=== PATIENT | male | born 1995 | race Caucasian/White ===

== ENCOUNTER → 2016-07-23 | Outpatient (CLI) | payer OTHER | END | disposition home or self-care (01) | LOC: YCFC.O 08:31 | PROVIDERS: ATTEND Nurse Practitioner Family | DX: Z13.220 Encounter for screening for lipoid disorders (principal); K29.70 Gastritis, unspecified, without bleeding ==

== ENCOUNTER → 2016-08-24 | Outpatient (CLI) | payer OTHER | LOC: RESP 13:49 | PROVIDERS: ATTEND Nurse Practitioner Family | DX: R07.9 Chest pain, unspecified (principal) ==

== ENCOUNTER → 2018-05-29 | Outpatient (CLI) | payer MEDICARE, OTHER ==
--- NOTE | 2018-05-30 11:19 | US ---
EXAM DESCRIPTION: Soft Tissue,Extremity: ULTRASOUND. CLINICAL HISTORY: 22 years Male EVALUATE FOR BAKERS CYST COMPARISON: None Available. TECHNIQUE: Transcutaneous scanning: Mac-scale and Doppler modes.: Left knee. FINDINGS: Scanning of the soft tissues of the posterior left knee. No dominant solid mass or distinct cyst. No parenchymal edema or large calcifications. No overlying skin changes. Normal vascularity. IMPRESSION: No soft tissue mass or fluid posterior left knee. Electronically signed by: Sergio Ivey MD 05/30/2018 11:16 AM [facility]
== END ==
LOC: US 14:56
PROVIDERS: ATTEND Nurse Practitioner Family
DX: M25.562 Pain in left knee (principal)

== ENCOUNTER → 2018-06-10 | Outpatient (CLI) | payer MEDICARE, OTHER ==
--- NOTE | 2018-06-10 11:37 | RAD ---
EXAM DESCRIPTION: Knee,Left Complete CLINICAL HISTORY: PAIN IN LEFT KNEE COMPARISON: None. IMPRESSION: 4 standing views of the left knee show no acute fracture, focal bone destruction, or joint dislocation. Mild lateral tilting of the patella is seen and could represent patellar tracking abnormality. No advanced arthrosis. Soft tissues are unremarkable. Electronically signed by: Ismael Bansal MD 06/10/2018 11:33 AM [facility]
--- NOTE | 2018-06-10 11:43 | RAD ---
EXAM DESCRIPTION: Pelvis CLINICAL HISTORY: PAIN IN LEFT HIP COMPARISON: None. IMPRESSION: Single AP supine view of the pelvis shows no acute fracture, focal bone destruction, or joint dislocation. No joint space narrowing. No advanced arthrosis. Small left greater than right cam deformity is of the lateral femoral head to neck junction is seen. Electronically signed by: Ismael Bansal MD 06/10/2018 11:40 AM [facility]
== END ==
LOC: RAD 08:46
PROVIDERS: ATTEND Orthopaedic Surgery
DX: M25.562 Pain in left knee (principal); M25.552 Pain in left hip

== ENCOUNTER → 2018-07-31 | Outpatient (CLI) | payer MEDICARE, MEDICAID ==
--- NOTE | 2018-08-01 14:55 | US ---
EXAM DESCRIPTION: Abdomen,Complete: Ultrasound. CLINICAL HISTORY: UNSPECIFIED ABDOMINAL PAIN COMPARISON: None Available. TECHNIQUE: Transabdominal scannin-dimensional and Doppler modes. FINDINGS: Gallbladder: Normal size and echogenicity with no intraluminal stones or sludge. No wall thickness 2.7 mm. No fluid around the wall. Nontender with transducer pressure. Common bile duct: 3.2 mm normal caliber. Liver: Increased echogenicity. Long axis right lobe 15.7 cm. Normal caliber of the portal vein and normal hepatopedal flow. Ducts are not dilated. 1.8 x 3.2 x 1.7 cm focal echogenic object in the right lobe. Smooth capsule with no ascites. Pancreas: Observed segments with normal echogenicity. Pancreatic duct not seen.. Abdominal aorta: Normal caliber from the proximal segment to the distal bifurcation. IVC: visualized; normal caliber. Spleen normal echogenicity; long axis measurement is 12.5 cm. Right kidney: 9.6 cm long axis. Normal cortical thickness and echogenicity. No hydronephrosis or perinephric fluid.. Left kidney: 11.0 cm long axis. Normal cortical thickness and echogenicity. No hydronephrosis or perinephric fluid. IMPRESSION: 1. Heterogeneously fatty liver. Focal echogenic region may represent a fatty island of the liver versus a hemangioma. Normal vascularity and normal intrahepatic ducts with no ascites. 2. Normal gallbladder and normal caliber of the common bile duct. Nontender during the scan. Pancreas is unremarkable. Negative findings in the spleen. 3. Bilateral kidneys unremarkable. Normal caliber of the IVC and abdominal aorta. Electronically signed by: Sergio Ivey MD 08/01/2018 2:52 PM CDT
== END ==
LOC: US 14:00
PROVIDERS: ATTEND Internal Medicine
DX: K76.0 Fatty (change of) liver, not elsewhere classified (principal)

== ENCOUNTER → 2018-08-07 | Outpatient (CLI) | payer MEDICARE, MEDICAID | LOC: LAB.O 16:33 | PROVIDERS: ATTEND Nurse Practitioner Family | DX: R10.32 Left lower quadrant pain (principal) ==

== ENCOUNTER → 2018-08-08 | Outpatient (CLI) | payer MEDICARE, MEDICAID ==
--- NOTE | 2018-08-08 14:01 | CT ---
EXAM DESCRIPTION: Abdomen/Pelvis w/wo Contrast CLINICAL HISTORY: 22 years Male, LEFT LOWER QUADRANT PAIN COMPARISON: Ultrasound abdomen dated 07/31/2018. TECHNIQUE: Contiguous 3 mm axial images were obtained from the lung bases to the level of the proximal femora before and after the administration of intravenous and oral contrast. Sagittal and coronal reconstructions were reviewed. FINDINGS: THORAX: The imaged lower thorax demonstrates no gross abnormality. LIVER: The liver demonstrates mild fatty infiltration. No abnormality is identified in the right hepatic lobe corresponding to the focus seen on prior ultrasound. GALLBLADDER: Grossly unremarkable. PANCREAS: Appears normal with no cystic or solid lesions. SPLEEN: Normal ADRENAL GLANDS: Normal with no nodules or masses. KIDNEYS: Punctate 3 mm nonobstructive calculus is noted in the upper pole of the left kidney. No hydronephrosis or perinephric fluid collections. No focal masses are identified. Duplicated collecting systems are noted on both sides. STOMACH: The stomach is not well-distended limiting detailed evaluation. SMALL BOWEL: The small bowel loops demonstrate variable degrees of distention with no abnormal dilatation or other signs to suggest bowel obstruction. LARGE BOWEL: Mild constipation is present. The appendix is well-visualized and appears normal No evidence of free intraperitoneal air or fluid. RETROPERITONEUM: The abdominal aorta is nonaneurysmal with no significant atherosclerosis. The inferior vena cava is normal in size and caliber. Stranding is identified in the mesentery with few subcentimeter lymph nodes. Findings can be seen with mesenteric panniculitis. URINARY BLADDER:The urinary bladder is well-distended with no gross abnormality. The prostate gland and seminal vesicles appear normal. ADDITIONAL FINDINGS: Fat-containing left inguinal hernia is identified. BONES: No degenerative changes are identified in the visualized bones.No evidence of osteophytic or osteoblastic lesions. IMPRESSION: 1. No abnormality is identified in the liver corresponding to the focus seen on prior ultrasound. 2. Duplicated collecting systems of both kidneys are identified. 3. Punctate 3 mm nonobstructive calculus is noted in the upper pole of the left kidney. 4. Stranding in the mesentery with subcentimeter lymph nodes. Findings can be seen with mesenteric panniculitis. This exam was performed according to our departmental dose-optimization program, which includes automated exposure control, adjustment of the mA and/or kV according to patient size and/or use of iterative reconstruction technique. Electronically signed by: Jazmine Deleon MD 08/08/2018 1:58 PM CDT
== END ==
LOC: CT 08:00
PROVIDERS: ATTEND Nurse Practitioner Family
DX: N20.0 Calculus of kidney (principal)

== ENCOUNTER 2018-08-15 20:27 | Emergency (ER) | payer MEDICARE, MEDICAID ==
[2018-08-15] MEDS: ONDANSETRON INJ 4 MG/2 ML VIAL IV ONE (21:14)
[2018-08-15] MEDS: SODIUM CHLORIDE 0.9% 1000ML 1,000 ML IVS ONE ×2 (21:22→22:27)
[2018-08-15] MEDS: LOPERAMIDE CAP 2 MG CAP PO ONE (21:22)
--- NOTE | 2018-08-15 22:21 | ED.PDOC ---
History of Present Illness - General Chief Complaint: General Stated Complaint: N/V/D this morning Elevated heart rate Time Seen by Provider: 08/15/18 20:41 Information Source: patient, RN notes reviewed, Vital Signs reviewed, family Exam Limitations: no limitations - History of Present Illness Initial Comments: c/o > 20 episodes of vomiting & diarrhea today. No bleeding. Mild diffuse abdominal cramping. Abdominal Pain Onset Location: generalized abdomen Pain Radiation: no radiation Quality: mild, cramping Timing/Duration: 7-24 hours Improving Factors: nothing Worsening Factors: nothing Associated Symptoms: diarrhea, fatigue, nausea/vomiting, weakness, other - tachycardic palpitations Review of Systems - Review of Systems Constitutional: States: see HPI EENTM: States: no symptoms reported Respiratory: States: short of breath - "anxious" Cardiology: States: see HPI Gastrointestinal/Abdominal: States: see HPI Genitourinary: States: no symptoms reported Musculoskeletal: States: no symptoms reported Skin: States: no symptoms reported Neurological: States: headache Hematologic/Lymphatic: States: no symptoms reported Past Medical History (General) - Patient Medical History Hx Seizures: No Hx Stroke: No Hx Dementia: No Hx Asthma: No Hx of COPD: No Hx Cardiac Disorders: No Hx Congestive Heart Failure: No Hx Pacemaker: No Hx Hypertension: No Hx Thyroid Disease: No Hx Diabetes: No Hx Gastroesophageal Reflux: No Hx Renal Disease: No Hx of HIV: No Hx MRSA: No Surgical History: other - Vaccination History Hx Tetanus, Diphtheria Vaccination: No Hx Influenza Vaccination: No Hx Pneumococcal Vaccination: No Immunizations Up to Date: Yes - Social History Hx Tobacco Use: No Hx Chewing Tobacco Use: No Hx Alcohol Use: No Hx Substance Use: No Hx Substance Use Treatment: No Hx Depression: Yes Feels Threatened In Home Enviroment: No Feels Threatened In a Relationship: No Hx Physical Abuse: No Hx Emotional Abuse: No Hx Suspected Abuse: No - Activities of Daily Living Hospice Agency (if applicable):: None - Female History Patient is a Female of Child Bearing Age (10 -59 yrs old): No Family Medical History - Family History Mother Family History: No Known Living Status: Still Living Physical Exam - Physical Exam General Appearance: Alert, Comfortable, No apparent distress Eyes, Ears, Nose, Throat Exam: other - dry oral mucosa Neck: supple, normal inspection Respiratory: lungs clear, normal breath sounds, no respiratory distress Cardiovascular/Chest: regular rate, rhythm, no edema, no gallop, tachycardia Gastrointestinal/Abdominal: soft, no organomegaly, tenderness - mild, diffuse Extremity: normal inspection, no pedal edema Neurologic: alert, normal mood/affect, oriented x 3 Skin Exam: normal color, warm/dry Special Observations: No evidence of discomfort Progress - Progress Progress: 08/15/18 22:20 Feeling better. Tolerating PO. HR 105. 08/15/18 23:33 HR 97. Feels ready to go home. - Results/Orders Results/Orders: WBC 8 Na 135 Cr 0.67 TB 1.7 Departure - Departure Clinical Impression: Gastroenteritis, Hyperbilirubinemia Time of Disposition: 23:34 Disposition: Discharge to Home or Self Care Condition: Good Departure Forms: ED Discharge - Pt. Copy, Patient Portal Self Enrollment Instructions: Viral Gastroenteritis, Adult (DC) Referrals: Barbi Loredo NP [Primary Care Provider] - 08/18/18 Prescriptions: Ondansetron Odt [Zofran ODT] 8 mg PO Q8H PRN 3 Days #9 tab PRN Reason: Nausea--Moderate Home Medications: Ambulatory Orders Escitalopram Oxalate [Lexapro] 20 mg PO BEDTIME 09/18/15 Loratadine [Claritin] 10 mg PO DAILY PRN 09/18/15 Ondansetron Odt [Zofran ODT] 8 mg PO Q8H PRN 3 Days #9 tab 08/15/18 Additional Instructions: One of your liver lab values was slightly elevated. It needs to be rechecked next week. Discuss with primary care provider.
[2018-08-15 23:55] VITALS: BP 145/86; TEMP 98.5; O2SAT 99
== END 2018-08-15 23:50 | disposition home or self-care (01) ==
LOC: ER 20:27
DX: K52.9 Noninfective gastroenteritis and colitis, unspecified (principal); E80.6 Other disorders of bilirubin metabolism; R00.0 Tachycardia, unspecified; F32.9 Major depressive disorder, single episode, unspecified
CPT/HCPCS: 36415; 80053; 85025; J2405; J7030

== ENCOUNTER 2018-11-03 16:42 | Emergency (ER) | payer MEDICARE, MEDICAID ==
[2018-11-03 16:54] VITALS: TEMP 99.3
--- NOTE | 2018-11-03 17:05 | ED.PDOC ---
History of Present Illness - General Chief Complaint: GI Problem Stated Complaint: lightheaded, nausea Time Seen by Provider: 11/03/18 17:02 Source: patient, RN notes reviewed, Vital Signs reviewed Additional Information: 23 YEAR OLD WHITE MALE PRESENTS WITH ABDOMINAL PAIN CENTRAL NON RADIATING ASSOCIATED WITH DIARRHEA LAST 2 DAYS NO FEVER CHILLS NO DYSURIA HE HAS HISTORY OF IBS - History of Present Illness Improving Factors: nothing Worsening Factors: nothing Allergies/Adverse Reactions: Allergies NO KNOWN ALLERGY Allergy (Verified 09/18/15 08:08) Home Medications: Ambulatory Orders Escitalopram Oxalate [Lexapro] 20 mg PO BEDTIME 09/18/15 Loratadine [Claritin] 10 mg PO DAILY PRN 09/18/15 Ondansetron Odt [Zofran ODT] 8 mg PO Q8H PRN 3 Days #9 tab 08/15/18 Buspirone HCl 10 mg PO DAILY 11/03/18 Dexlansoprazole [Dexilant] 30 mg PO DAILY 11/03/18 Dicyclomine HCl 20 mg PO DAILY PRN 11/03/18 Linaclotide [Linzess] 290 mcg PO DAILY 11/03/18 Naproxen [Naprosyn] 500 mg PO BID PRN 11/03/18 Review of Systems - Review of Systems Constitutional: States: no symptoms reported EENTM: States: no symptoms reported Respiratory: States: no symptoms reported Cardiology: States: no symptoms reported Gastrointestinal/Abdominal: States: see HPI Genitourinary: States: no symptoms reported Musculoskeletal: States: no symptoms reported Skin: States: no symptoms reported Neurological: States: no symptoms reported Endocrine: States: no symptoms reported Hematologic/Lymphatic: States: no symptoms reported Past Medical History (General) - Patient Medical History Hx Seizures: No Hx Stroke: No Hx Dementia: No Hx Asthma: No Hx of COPD: No Hx Cardiac Disorders: No Hx Congestive Heart Failure: No Hx Pacemaker: No Hx Hypertension: No Hx Thyroid Disease: No Hx Diabetes: No Hx Gastroesophageal Reflux: No Hx Renal Disease: No Hx of HIV: No Hx MRSA: No Surgical History: other - Vaccination History Hx Tetanus, Diphtheria Vaccination: No Hx Influenza Vaccination: No Hx Pneumococcal Vaccination: No - Social History Hx Tobacco Use: No Hx Chewing Tobacco Use: No Hx Alcohol Use: No Hx Substance Use: No Hx Substance Use Treatment: No Hx Depression: Yes Hx Physical Abuse: No Hx Emotional Abuse: No Hx Suspected Abuse: No Family Medical History - Family History Mother Family History: No Known Living Status: Still Living Physical Exam - Physical Exam General Appearance: Alert, Comfortable Eye Exam: bilateral normal Ears, Nose, Throat: hearing grossly normal, normal ENT inspection Neck: non-tender, full range of motion, supple Respiratory: chest non-tender, lungs clear, normal breath sounds, no respiratory distress, no accessory muscle use Cardiovascular/Chest: normal peripheral pulses, regular rate, rhythm, no edema, no gallop Gastrointestinal/Abdominal: normal bowel sounds, non tender, soft, tenderness Back Exam: normal inspection, no CVA tenderness Neurologic: speeder frame tender II-XII nml as tested, no motor/sensory deficits, alert, normal mood/affect Skin Exam: normal color, warm/dry Progress - Results/Orders Results/Orders: Laboratory Tests 11/03/18 11/03/18 11/03/18 17:22 17:22 17:22 WBC 5.9 RBC 5.12 Hgb 15.2 Hct 44.3 MCV 86.4 MCH 29.7 MCHC 34.3 RDW 13.1 Plt Count 251 MPV 8.4 Absolute Neuts (auto) 4.60 Absolute Lymphs (auto) 0.90 L Absolute Monos (auto) 0.30 Absolute Eos (auto) 0.00 Absolute Basos (auto) 0.00 Neutrophils % 79.1 H Lymphocytes % 15.3 L Monocytes % 5.1 Eosinophils % 0.1 L Basophils % 0.4 Sodium 141 Potassium 3.6 Chloride 107 Carbon Dioxide 22 Anion Gap 15.6 BUN 12 Creatinine 0.78 BUN/Creatinine Ratio 15.4 Random Glucose 78 Serum Osmolality 279.9 Calcium 9.7 Total Bilirubin 1.8 H AST 35 ALT 53 Alkaline Phosphatase 61 Serum Total Protein 7.9 Albumin 4.9 Globulin 3.0 Albumin/Globulin Ratio 1.6 Urine Color Yellow Urine Appearance Cloudy Urine pH 5.5 Ur Specific [place] >= 1.030 Urine Protein 30 Urine Glucose (UA) Negative Urine Ketones >=160 Urine Blood Moderate H Urine Nitrite Negative Urine Bilirubin Moderate Urine Urobilinogen 0.2 Ur Leukocyte Esterase Negative Urine RBC Tntc H Urine WBC 0 Ur Epithelial Cells 0-1 Amorphous Sediment 1+ Urine Bacteria 1+ Urine Mucus Small Departure - Departure Clinical Impression: Diarrhea, Nephrolithiasis, Irritable bowel syndrome (IBS) Time of Disposition: 18:46 Disposition: Discharge to Home or Self Care Condition: Fair Departure Forms: ED Discharge - Pt. Copy, Patient Portal Self Enrollment Referrals: Barbi Loredo NP [Primary Care Provider] - 1-2 Weeks Home Medications: Ambulatory Orders Escitalopram Oxalate [Lexapro] 20 mg PO BEDTIME 09/18/15 Loratadine [Claritin] 10 mg PO DAILY PRN 09/18/15 Ondansetron Odt [Zofran ODT] 8 mg PO Q8H PRN 3 Days #9 tab 08/15/18 Buspirone HCl 10 mg PO DAILY 11/03/18 Dexlansoprazole [Dexilant] 30 mg PO DAILY 11/03/18 Dicyclomine HCl 20 mg PO DAILY PRN 11/03/18 Linaclotide [Linzess] 290 mcg PO DAILY 11/03/18 Naproxen [Naprosyn] 500 mg PO BID PRN 11/03/18
[2018-11-03] MEDS ORDERED: HYOSCYAMINE SULFATE 0.5 MG/ML VIAL IV ONE (17:08)
[2018-11-03 18:10] VITALS: BP 118/80; O2SAT 99
--- NOTE | 2018-11-03 18:40 | CT ---
EXAM: CT Abdomen and Pelvis Without Intravenous Contrast CLINICAL HISTORY: 23 years old and is Male; hematuria TECHNIQUE: Axial computed tomography images of the abdomen and pelvis without intravenous contrast. Sagittal and coronal reformatted images were created and reviewed. This CT exam was performed using one or more of the following dose reduction techniques: automated exposure control, adjustment of the mA and/or kV according to patient size, and/or use of iterative reconstruction technique. COMPARISON: No relevant prior studies available. FINDINGS: Limitations: None. Lung bases: Unremarkable. No mass. No consolidation. ABDOMEN: Liver: Unremarkable. Gallbladder and bile ducts: Unremarkable. No calcified stones. No ductal dilation. Pancreas: Unremarkable. No ductal dilation. Spleen: Unremarkable. No splenomegaly. Adrenals: Unremarkable. No mass. Kidneys and ureters: There is a single 1-2 mm nonobstructing stone in each kidney. Stomach and bowel: Unremarkable. No obstruction. No mucosal thickening. PELVIS: Appendix: No findings to suggest acute appendicitis. Bladder: Unremarkable. No stones. Reproductive: Unremarkable as visualized. ABDOMEN and PELVIS: Intraperitoneal space: Unremarkable. No free air. No significant fluid collection. Bones/joints: No acute fracture. No dislocation. Soft tissues: Unremarkable. Vasculature: Unremarkable. No abdominal aortic aneurysm. Lymph nodes: Unremarkable. No enlarged lymph nodes. IMPRESSION: Bilateral nonobstructing kidney stones. Otherwise negative. Electronically signed by: Savanna Ibrahim MD 11/03/2018 6:38 PM CDT
== END 2018-11-03 18:55 | disposition home or self-care (01) ==
LOC: ER 16:42
DX: K58.0 Irritable bowel syndrome with diarrhea (principal); N20.0 Calculus of kidney; F32.9 Major depressive disorder, single episode, unspecified; Z79.899 Other long term (current) drug therapy

== ENCOUNTER → 2019-08-14 | Outpatient (CLI) | payer MEDICARE, MEDICAID ==
--- NOTE | 2019-08-14 15:28 | US ---
PROVIDED CLINICAL HISTORY/REASON FOR EXAM: NODULE TECHNIQUE: Real time sonographic examination was performed by a project product manager and multiple longitudinal and transverse ultrasound images through the thyroid gland were acquired. In addition, Doppler was performed. COMPARISON: None available. FINDINGS: The right thyroid lobe measures 1.9 x 5.6 x 1.8 cm and the left thyroid lobe measures 1.9 x 4.7 x 1.4 cm. The isthmus measures 0.3 cm. The thyroid gland is normal in size and echogenicity. TI-RADS Nodule: 1 Location: Right mid Size: 0.6 x 0.3 x 0.3 cm Composition: Solid - 2 Echogenicity: Hyper/iso-echoic - 1 Shape: [id number] - 0 Margin: Smooth - 0 Echogenic foci: None - 0 TI-RADS Total Points: 3 (TR-3) TR- TR-3 < 1.5 cm. No further follow up. No significant cervical lymphadenopathy is identified. IMPRESSION: Right thyroid lobe nodule measuring 0.6 cm, TI-RADS 3. No follow-up indicated. Electronically signed by: Kishor Goldberg MD 08/14/2019 3:27 PM CDT
== END ==
LOC: US 14:00
PROVIDERS: ATTEND Nurse Practitioner Family
DX: E04.1 Nontoxic single thyroid nodule (principal)